=== PATIENT | male | born 1980 | race Caucasian/White ===

== ENCOUNTER 2021-11-01 01:15 | Emergency (ER) | payer SELFPAY | END 2021-11-01 04:31 | disposition left against medical advice (07) | LOC: ER 01:15 | DX: Z53.21 Procedure and treatment not carried out due to patient leaving prior to being seen by health care provider (principal) ==

== ENCOUNTER 2022-06-18 19:05 | Inpatient (IN) | payer MEDICAID, OTHER ==
[~2022-06-18] VITALS: Ht 175.3 cm; Wt 84.4 kg
[2022-06-18] MEDS ORDERED: PIPERACILLIN/TAZ 3.375G PREMIX 50 ML IV ONE (20:15)
[2022-06-18] MEDS ORDERED: SODIUM CHLORIDE 0.9% 1,000 ML IV ONE (20:15)
[2022-06-18] MEDS ORDERED: VANCOMYCIN 1G PREMIX 200 ML IV ONE (20:15)
[2022-06-18 20:49] LABS: BASOPHILS % 0.4 % (0.0-2.0); EOSINOPHILS % 0.9 % (0.0-5.0); HEMATOCRIT. 40.8 % (42.0-52.0); HEMOGLOBIN. 14.4 g/dL (14.0-18.0); LYMPHOCYTES % 12.1 % (20.0-50.0); MEAN CORPUSCULAR HEMOGLOBIN 32.7 pg (28.0-32.0); MEAN CORPUSCULAR VOLUME 92.7 fL (80.0-94.0); MEAN PLATELET VOLUME 7.7 fl (7.4-10.4); MONOCYTES % 9.9 % (2.0-8.0); NEUTROPHILS % 76.7 % (40.0-76.0); PLATELET 355 x1000/uL (130-400); RED CELL DISTRIBUTION WIDTH 13.7 % (11.6-14.6)
[2022-06-18 20:52] LABS: CHLORIDE 97 mEq/L (98-107)
[2022-06-18] MEDS ORDERED: PIPERACILLIN/TAZ 3.375G PREMIX 50 ML IV NR (21:00)
[2022-06-18] MEDS ORDERED: POTASSIUM CHLORIDE INJ 40 MEQ in DEXT 5% WATER 250 ML IV ONE (21:00)
[2022-06-18] MEDS ORDERED: KCL 20MEQ/100ML X 2 FOR TOTAL KCL 40MEQ/200ML IV SCH (21:00)
[2022-06-18] MEDS ORDERED: IOHEXOL-300 100 ML BOTTLE ONE (21:33)
[2022-06-18] MEDS ORDERED: VANCOMYCIN 1G PREMIX 200 ML IV NR (22:00)
[2022-06-18] MEDS ORDERED: DIPHENHYDRAMINE 50MG/ML VIAL IV PRN (23:15)
[2022-06-18] MEDS ORDERED: ACETAMINOPHEN 325MG TABLET PO PRN ×2 (23:15)
[2022-06-18] MEDS ORDERED: MAGNESIUM/ALUMINUM HYDROXIDE/SIMETHICONE 30ML UDC PO PRN (23:15)
[2022-06-18] MEDS ORDERED: ZOLPIDEM TARTRATE 5MG TABLET PO PRN (23:15)
[2022-06-18] MEDS ORDERED: ONDANSETRON HCL 4MG/2ML INJ IV PRN (23:15)
[2022-06-18] MEDS ORDERED: AMPICILLIN SOD/SULBACTAM NA 3 G in SODIUM CHLORIDE 0.9% 100 ML IV SCH (23:59)
[2022-06-19] VITALS: BP 140/80
[2022-06-19] MEDS ORDERED: HYDROCODONE/ACETAMINOPHEN 5/325MG TABLET PO PRN (00:45)
[2022-06-19] MEDS ORDERED: KETOROLAC 30MG/ML VIAL IV PRN (00:45)
[2022-06-19] MEDS: AMPICILLIN SOD/SULBACTAM NA 3 G in SODIUM CHLORIDE 0.9% 100 ML IV SCH ×4 (01:23→20:40)
[2022-06-19 04:00] VITALS: BP 140/80
[2022-06-19] MEDS: SODIUM CHLORIDE 0.9% INJ 3ML FLUSH IVF SCH ×3 (05:40→20:42)
[2022-06-19 08:00] VITALS: BP 134/72
[2022-06-19] MEDS: POTASSIUM CHLORIDE 20MEQ TABLET SR PO SCH (08:05)
[2022-06-19 08:31] LABS: BASOPHILS % 0.3 % (0.0-2.0); HEMATOCRIT. 36.6 % (42.0-52.0); HEMOGLOBIN. 12.9 g/dL (14.0-18.0); LYMPHOCYTES % 14.1 % (20.0-50.0); MEAN CORPUSCULAR HEMOGLOBIN 32.7 pg (28.0-32.0); MEAN CORPUSCULAR VOLUME 92.9 fL (80.0-94.0); MEAN PLATELET VOLUME 8.2 fl (7.4-10.4); MONOCYTES % 12.3 % (2.0-8.0); NEUTROPHILS % 69.3 % (40.0-76.0); PLATELET 316 x1000/uL (130-400); RED BLOOD CELL COUNT 3.94 mill/uL (4.7-6.1); RED CELL DISTRIBUTION WIDTH 13.3 % (11.6-14.6)
[2022-06-19 12:00] VITALS: BP 154/86
[2022-06-19 16:00] VITALS: BP 148/80
[2022-06-19] MEDS ORDERED: TETANUS AND DIPHTHERIA TOX/PF 0.5ML SYR (ADULT) IM ONE (16:00)
[2022-06-19 16:22] LABS: CHLORIDE 100 mEq/L (98-107)
[2022-06-19 16:32] LABS: CREATINE KINASE 129 IU/L (39-308); PHOSPHORUS 3.8 mg/dL (2.5-4.9)
[2022-06-19] MEDS ORDERED: NALOXONE HCL 0.4MG/ML VIAL IV PRN (17:00)
[2022-06-19 20:00] VITALS: BP 116/77
[2022-06-19] MEDS: SODIUM HYPOCHLORITE 0.125% 473ML SOLUTION TOP SCH ×2 (20:41→22:00)
[2022-06-20] VITALS: BP 120/80
[2022-06-20] MEDS: AMPICILLIN SOD/SULBACTAM NA 3 G in SODIUM CHLORIDE 0.9% 100 ML IV SCH ×4 (01:10→22:15)
[2022-06-20 04:00] VITALS: BP 130/80
[2022-06-20] MEDS: SODIUM HYPOCHLORITE 0.125% 473ML SOLUTION TOP SCH ×6 (06:27→22:22)
[2022-06-20] MEDS: SODIUM CHLORIDE 0.9% INJ 3ML FLUSH IVF SCH ×3 (06:27→22:19)
[2022-06-20 08:00] VITALS: BP 150/98
[2022-06-20] MEDS: POTASSIUM CHLORIDE 20MEQ TABLET SR PO SCH ×3 (08:21→16:19)
[2022-06-20 11:45] VITALS: BP 152/106
[2022-06-20 16:00] VITALS: BP 168/100
[2022-06-20] MEDS: CLONIDINE 0.1MG TABLET PO PRN ×2 (16:20→22:17)
[2022-06-20 20:00] VITALS: BP 161/98
[2022-06-20] MEDS ORDERED: OLANZAPINE 10MG TABLET PO SCH (21:00)
[2022-06-20] MEDS: MUPIROCIN 2% OINT 22GM NS SCH (21:00)
[2022-06-21] VITALS: BP 148/72
[2022-06-21] MEDS: AMPICILLIN SOD/SULBACTAM NA 3 G in SODIUM CHLORIDE 0.9% 100 ML IV SCH ×4 (03:36→21:44)
[2022-06-21 04:00] VITALS: BP 146/84
[2022-06-21] MEDS: SODIUM HYPOCHLORITE 0.125% 473ML SOLUTION TOP SCH ×5 (05:42→22:00)
[2022-06-21] MEDS: SODIUM CHLORIDE 0.9% INJ 3ML FLUSH IVF SCH ×3 (05:43→22:00)
[2022-06-21 06:53] LABS: BASOPHILS % 0.5 % (0.0-2.0); EOSINOPHILS % 4.4 % (0.0-5.0); LYMPHOCYTES % 21.3 % (20.0-50.0); MEAN CORPUSCULAR HEMOGLOBIN 32.8 pg (28.0-32.0); MEAN CORPUSCULAR VOLUME 93.9 fL (80.0-94.0); MEAN PLATELET VOLUME 7.6 fl (7.4-10.4); MONOCYTES % 11.4 % (2.0-8.0); NEUTROPHILS % 62.4 % (40.0-76.0); PLATELET 423 x1000/uL (130-400); RED BLOOD CELL COUNT 4.58 mill/uL (4.7-6.1); RED CELL DISTRIBUTION WIDTH 13.4 % (11.6-14.6)
[2022-06-21 08:00] VITALS: BP 135/82
[2022-06-21] MEDS: POTASSIUM CHLORIDE 20MEQ TABLET SR PO SCH ×3 (08:02→17:00)
[2022-06-21] MEDS: MUPIROCIN 2% OINT 22GM NS SCH ×2 (08:03→21:53)
[2022-06-21] MEDS ORDERED: LIDOCAINE HCL 2%/EPINEPHRINE/PF 10 ML VIAL INFIL NR (09:00)
[2022-06-21] MEDS ORDERED: LIDOCAINE HCL 2% JELLY 5ML TOP NR (09:00)
[2022-06-21 10:01] LABS: CHLORIDE 99 mEq/L (98-107)
[2022-06-21] MEDS ORDERED: LIDOCAINE HCL 1% 10 MG/ML 10ML VIAL INJ NR (10:30)
[2022-06-21] MEDS ORDERED: LIDOCAINE HCL/EPINEPHRINE 1%-EPI 1:100,000 20 ML VIAL INFIL NR (11:00)
[2022-06-21 12:00] VITALS: BP 119/81
[2022-06-21 14:51] LABS: HEPATITIS B SURFACE ANTIGEN NEGATIVE
[2022-06-21 16:00] VITALS: BP 138/69
[2022-06-21 20:00] VITALS: BP 126/75
[2022-06-21] MEDS: OLANZAPINE 5MG TABLET PO SCH (21:39)
[2022-06-22] VITALS: BP 124/75
[2022-06-22] MEDS: AMPICILLIN SOD/SULBACTAM NA 3 G in SODIUM CHLORIDE 0.9% 100 ML IV SCH ×2 (03:09→08:26)
[2022-06-22] MEDS: SODIUM HYPOCHLORITE 0.125% 473ML SOLUTION TOP SCH ×4 (03:11→21:37)
[2022-06-22 04:00] VITALS: BP 111/64
[2022-06-22] MEDS: SODIUM CHLORIDE 0.9% INJ 3ML FLUSH IVF SCH ×2 (05:53→14:00)
[2022-06-22 08:00] VITALS: BP 122/74
[2022-06-22] MEDS: MUPIROCIN 2% OINT 22GM NS SCH ×2 (08:36→21:36)
[2022-06-22 10:08] LABS: HIV SCREEN 4G Non Reactive (Non Reactive)
[2022-06-22 12:00] VITALS: BP 115/79
[2022-06-22 16:00] VITALS: BP 122/64
[2022-06-22 20:00] VITALS: BP 103/67
[2022-06-22] MEDS: OLANZAPINE 5MG TABLET PO SCH (21:35)
[2022-06-23] VITALS: BP 110/62
[2022-06-23 04:00] VITALS: BP 121/65
[2022-06-23] MEDS: SODIUM HYPOCHLORITE 0.125% 473ML SOLUTION TOP SCH ×3 (05:28→13:13)
[2022-06-23] MEDS: SODIUM CHLORIDE 0.9% INJ 3ML FLUSH IVF SCH (05:29)
[2022-06-23 08:00] VITALS: BP 121/78
[2022-06-23] MEDS: MUPIROCIN 2% OINT 22GM NS SCH (10:27)
[2022-06-23 12:00] VITALS: BP 125/71
[2022-06-23] MEDS ORDERED: CEPHALEXIN 250MG CAPSULE PO SCH (12:00)
[2022-06-23 16:00] VITALS: BP 115/73
[2022-06-23 16:50] VITALS: BP 115/73
== END 2022-06-23 17:20 | disposition home or self-care (01) | DRG 720 ==
LOC: ER 19:05 → EDBEDREQ 20:17 → 8WST 21:36 → EDBEDREQ 21:37 → EDBEDREQSVC 21:37 → EDBEDREQTM 21:37 → ENRESERV 23:06
PROVIDERS: ADMIT Internal Medicine; ATTEND Internal Medicine
DX: A41.9 Sepsis, unspecified organism (principal); L03.116 Cellulitis of left lower limb; E87.6 Hypokalemia; F31.9 Bipolar disorder, unspecified; F15.10 Other stimulant abuse, uncomplicated; F20.9 Schizophrenia, unspecified; Z23 Encounter for immunization; Z91.14 Patient's other noncompliance with medication regimen; Z59.00 Homelessness unspecified; S71.152D Open bite, left thigh, subsequent encounter; W54.0XXD Bitten by dog, subsequent encounter; Z91.199 Patient's noncompliance with other medical treatment and regimen due to unspecified reason
CPT/HCPCS: 36415; 71045; 73701; 80048; 80053; 82550; 83605; 83735; 84100; 84145; 85025; 86803; 87340; 87389; 90714; 97162; 99291; J0295; J1885; J2543; J3370; J3480; J3490; J7030; J7050; Q9967